=== PATIENT | female | born 1965 | race Caucasian/White ===

== ENCOUNTER → 2016-05-30 | Outpatient (REF) | payer OTHER ==
[2016-05-30 14:15] LABS: BASO % 0.6 % (0.0-1.0); EOS # 0.2 K/mm3 (0.0-0.50); EOS % 6.2 % (0.0-3.0); LARGE UNSTAINED CELL # 0.1 K/mm3 (0.0-0.4); LYMPH # 1.2 K/mm3 (1.5-4.5); LYMPH % 28.9 % (24.0-44.0); MEAN CORPUSCULAR HEMOGLOBIN 32.3 pg (27.0-33.0); MEAN CORPUSCULAR HGB CONC 34.5 g/dl (32.0-36.5); MEAN CORPUSCULAR VOLUME 93.6 fl (80.0-96.0); MONO # 0.4 K/mm3 (0.0-0.8); MONO % 8.8 % (0.0-5.0); NEUTROPHILS # 2.1 K/mm3 (1.8-7.7); NEUTROPHILS % 52.5 % (36.0-66.0); PLATELET COUNT, AUTOMATED 240 k/mm3 (150-450); RED CELL DISTRIBUTION WIDTH 12.3 % (11.5-14.5); WHITE BLOOD COUNT 4.1 K/mm3 (4.0-10.0)
[2016-05-30 14:32] LABS: ALBUMIN 3.5 GM/DL (3.2-5.2); ALBUMIN/GLOBULIN RATIO 1.21 (1.00-1.93); ALKALINE PHOSPHATASE 53 U/L (45-117); ALT/SGPT 18 U/L (12-78); ANION GAP 7 MEQ/L (8-16); AST/SGOT 10 U/L (15-37); BILIRUBIN,TOTAL 0.3 MG/DL (0.2-1.0); BLOOD UREA NITROGEN 11 MG/DL (7-18); CALCIUM LEVEL 8.3 MG/DL (8.5-10.1); CARBON DIOXIDE LEVEL 29 MEQ/L (21-32); CHLORIDE LEVEL 108 MEQ/L (98-107); CREATININE FOR GFR 0.66 MG/DL (0.55-1.02); GLOMERULAR FILTRATION RATE > 60.0 (>58); GLUCOSE, FASTING 89 MG/DL (70-105); POTASSIUM SERUM 3.8 MEQ/L (3.5-5.1); SODIUM LEVEL 144 MEQ/L (136-145); TOTAL PROTEIN 6.4 GM/DL (6.4-8.2)
== END ==
LOC: M LABNEURO 12:08
PROVIDERS: ATTEND Psychiatry & Neurology Neurology
DX: G47.419 Narcolepsy without cataplexy (principal); G44.229 Chronic tension-type headache, not intractable; G43.009 Migraine without aura, not intractable, without status migrainosus

== ENCOUNTER → 2019-01-29 | Outpatient (REF) | LOC: M LAB LCGH 08:34 | PROVIDERS: ATTEND Obstetrics & Gynecology | DX: N92.4 Excessive bleeding in the premenopausal period (principal) ==

== ENCOUNTER 2019-06-07 09:09 | Emergency (ER) | payer OTHER ==
[~2019-06-07] VITALS: Ht 162.6 cm; Wt 72.7 kg
[2019-06-07] MEDS ORDERED: ADACEL/BOOSTRIX VACCINE (DIPHTH/PERTUSS/ACELL/TETANUS)0.5ML SYR (90715) IM ONE (09:30)
[2019-06-07] MEDS ORDERED: ISOVUE-370 76% 100ML VIAL (Q9967) As Ordered ONE (09:50)
[2019-06-07 09:51] LABS: VENOUS HCO3 20.6 MEQ/L (23.0-27.0); VENOUS O2 SATURATION 78.9 % (60.0-80.0); VENOUS PARTIAL PRESSURE CO2 40.1 mmHg (38.0-50.0); VENOUS PARTIAL PRESSURE O2 44.7 mmHg (30.0-50.0); VENOUS PH 7.328 UNITS (7.330-7.430); VENOUS TOTAL CO2 21.8 MEQ/L (24.0-28.0)
[2019-06-07 09:58] LABS: BASO % 0.3 % (0.0-1.0); EOS # 0.1 10^3/uL (0.0-0.5); EOS % 1.3 % (0.0-3.0); HEMATOCRIT 43.3 % (36.0-47.0); HEMOGLOBIN 15.2 g/dl (12.0-15.5); LYMPH # 1.5 10^3/uL (1.5-5.0); MEAN CORPUSCULAR HEMOGLOBIN 32.4 pg (27.0-33.0); MEAN CORPUSCULAR HGB CONC 35.1 g/dl (32.0-36.5); MEAN CORPUSCULAR VOLUME 92.3 fl (80.0-96.0); MONO # 0.7 10^3/uL (0.0-0.8); MONO % 9.2 % (0.0-5.0); NEUTROPHILS # 5.2 10^3/uL (1.5-8.5); NEUTROPHILS % 68.4 % (36.0-66.0); PLATELET COUNT, AUTOMATED 235 10^3/uL (150-450); RED BLOOD COUNT 4.69 10^6/uL (4.00-5.40); WHITE BLOOD COUNT 7.7 10^3/uL (4.0-10.0)
[2019-06-07] MEDS ORDERED: NS 1,000 ML IV SCH (10:00)
[2019-06-07] MEDS ORDERED: ONDANSETRON 4MG/2ML VIAL (J2405) IV ONE (10:00)
[2019-06-07] MEDS ORDERED: MORPHINE 4 MG/ML 1ML VIAL/SYRINGE (J2270) IV PRN (10:00)
[2019-06-07 10:09] LABS: INR 1.14; PROTHROMBIN TIME 14.4 SECONDS (11.8-14.0)
[2019-06-07 10:10] LABS: PARTIAL THROMBOPLASTIN TIME 25.7 SECONDS (25.0-38.4)
--- NOTE | 2019-06-07 10:17 | REP ---
CHEST, PORTABLE: AP portable view of the chest is performed in the supine position. There are no prior studies for comparison. There is no acute infiltrate. Lungs are clear. There is a subcentimeter nodular opacity in the right lung at the level of the hilum, which appears to represent a calcified granuloma, 6 mm in maximum diameter. Heart and mediastinum are unremarkable. Visualized osseous structures are intact. Electronically Signed by Anuj Luther MD 06/07/2019 06:37 P
[2019-06-07 10:28] LABS: ALBUMIN 3.3 GM/DL (3.2-5.2); ALT/SGPT 23 U/L (12-78); AMYLASE 59 U/L (25-115); BILIRUBIN,DIRECT 0.1 MG/DL (0.0-0.2); BILIRUBIN,TOTAL 0.5 MG/DL (0.2-1.0); BLOOD UREA NITROGEN 14 MG/DL (7-18); CALCIUM LEVEL 8.2 MG/DL (8.5-10.1); CARBON DIOXIDE LEVEL 23 MEQ/L (21-32); CHLORIDE LEVEL 113 MEQ/L (98-107); CK-MB VALUE MASS 2.9 NG/ML (<3.6); CPK CREATINE PHOSPHOKINASE 132 U/L (26-192); ETHYL ALCOHOL (ETHANOL) < 0.003 % (0.000-0.010); GLOMERULAR FILTRATION RATE > 60.0 (>51); GLUCOSE, FASTING 111 MG/DL (70-100); LIPASE 153 U/L (73-393); POTASSIUM SERUM 3.7 MEQ/L (3.5-5.1); SODIUM LEVEL 140 MEQ/L (136-145); TOTAL PROTEIN 6.7 GM/DL (6.4-8.2); TROPONIN I < 0.02 NG/ML (< 0.10)
--- NOTE | 2019-06-07 10:40 | REP ---
CT BRAIN WITHOUT CONTRAST: CT brain performed without IV contrast. Coronal reconstruction images are performed. Ventricles are normal in size and position with no midline shift or mass effect. Luther-white differentiation is well maintained. A small amount of hyperdense hemorrhage is seen along the right tentorium, extending into the inferior aspect of the interhemispheric fissure posteriorly. This is likely subarachnoid in location. No other area of hemorrhage is seen. No skull fracture is seen. IMPRESSION: A small amount of hemorrhage along the right tentorium extending into the inferior/posterior interhemispheric fissure. This is likely subarachnoid. There is no evidence of associated edema or mass effect. Dr. Waldron was informed of these findings at approximately 10:20 a.m. 06/07/19. Electronically Signed by Anuj Luther MD 06/07/2019 06:40 P
[2019-06-07] MEDS ORDERED: SYNT25TA PO (10:41)
[2019-06-07] MEDS ORDERED: ZYRTTAB8 PO (10:41)
[2019-06-07] MEDS ORDERED: MELO15TA28 PO (10:41)
[2019-06-07] MEDS ORDERED: METH20TA50 PO (10:41)
[2019-06-07] MEDS ORDERED: SING10TA32 PO (10:41)
[2019-06-07] MEDS ORDERED: MODA200T15 PO (10:41)
[2019-06-07] MEDS ORDERED: TOPI100T9 PO (10:41)
[2019-06-07 11:02] VITALS: BP 116/84
--- NOTE | 2019-06-07 11:03 | REP ---
CT CERVICAL SPINE WITHOUT CONTRAST: CT cervical spine performed without IV contrast. Sagittal and coronal reconstruction images are performed. There is no evidence of fracture or dislocation. There is mild reversal of the normal cervical lordosis. There is no prevertebral soft tissue swelling. There is moderate spurring of C4 through C7 with mild intervening disc space narrowing and subchondral sclerosis at C4-5, C5-6, and C6-7. There is diffuse narrowing, spurring, and subchondral sclerosis at the posterior facet joints. No abnormal density is seen in the spinal canal. IMPRESSION: Degenerative changes without fracture or dislocation. Electronically Signed by Anuj Luther MD 06/07/2019 06:41 P
--- NOTE | 2019-06-07 11:05 | REP ---
CT MAXILLOFACIAL BONES: CT maxillofacial bones performed without IV contrast. Sagittal and coronal reconstruction images are performed. No facial bone fracture is seen. There is periorbital superficial soft tissue hematoma on the right. Globes are intact. Paranasal sinuses demonstrate no air fluid levels. There is mild focal opacification of right ethmoid air cell on the right. Mastoid air cells are well aerated. IMPRESSION: No evidence of maxillofacial bone fracture. Globes are intact. Right periorbital soft tissue hematoma. Electronically Signed by Anuj Luther MD 06/07/2019 06:41 P
--- NOTE | 2019-06-07 11:07 | REP ---
CT CHEST WITH IV CONTRAST. TECHNIQUE: Axial contrast enhanced images from the thoracic inlet to the upper abdomen using 100 mL Isovue 370 intravenous contrast material with multiplanar reformations. The lungs are free of infiltrate or other abnormal opacities. There is no pneumothorax. There is no mediastinal, hilar, or chest wall lymphadenopathy. There is no pleural or pericardial effusion. Heart is normal in size. Thoracic aorta is normal in caliber with no dissection. There are degenerative changes of the spine. No fracture is seen of the visualized osseous structures. IMPRESSION: No acute abnormalities detected. Electronically Signed by Anuj Luther MD 06/07/2019 06:42 P
--- NOTE | 2019-06-07 11:18 | REP ---
CT ABDOMEN/PELVIS WITH IV CONTRAST: TECHNIQUE: Axial contrast enhanced images from the lung bases to the pubic symphysis using 100 mL Isovue 370 intravenous contrast material with multiplanar reformations. In the right lobe of the liver, there is a subcentimeter hypodensity, probably representing a small subcentimeter benign cyst or hemangioma. Otherwise, liver, spleen, adrenals, pancreas, and kidneys are unremarkable with no evidence of traumatic injury. Abdominal aorta is normal in caliber with no aneurysm. There is no adenopathy. There is no free air or free fluid. There is no bowel thickening. Appendix is normal. In the pelvis, the uterus is retroflexed. It contains an IUD. There is a small cyst in each ovary, on the right 2.7 cm maximally, on the left 3.2 cm maximally. Urinary bladder is mildly distended and appears unremarkable. Visualized osseous structures demonstrate no fracture. There are mild degenerative changes of the lumbar spine. Scattered diverticula are seen of the sigmoid colon. IMPRESSION: No acute posttraumatic injury of the organs. No free air or free fluid. No fracture of the visualized osseous structures. Small cyst is seen in each ovary. Subcentimeter cyst or hemangioma right lobe of liver. Electronically Signed by Anuj Luther MD 06/07/2019 06:42 P
--- NOTE | 2019-06-07 11:38 | REP ---
RIGHT KNEE, FIVE VIEWS: There is no evidence of an acute fracture, dislocation or intrinsic bone disease. IMPRESSION: No fracture or dislocation. Electronically Signed by Anuj Luther MD 06/07/2019 06:43 P
--- NOTE | 2019-06-07 11:39 | REP ---
RIGHT ANKLE, FOUR VIEWS: There is no evidence of an acute fracture, dislocation or intrinsic bone disease. IMPRESSION: No fracture or dislocation. Electronically Signed by Anuj Luther MD 06/07/2019 06:43 P
--- NOTE | 2019-06-07 17:51 | ECGEPIP ---
[facility] - ED Test Date: 2019-06-07 Pat Name: ROXIE MCNEIL Department: Room: - Gender: Female Head [employer]: M ED : 1965 Requested By: Terra Crowley Order Number: [id number] Reading MD: Terra Crowley Measurements Intervals [place] Rate: 74 P: 59 NV: 181 QRS: 19 QRSD: 85 T: 44 QT: 384 QTc: 427 Interpretive Statements SINUS RHYTHM No prior Electronically Signed on 06-07-2019 17:51:43 EST by Terra Crowley
== END 2019-06-07 11:04 | disposition short-term general hospital (02) ==
LOC: M ED 09:09 → EDBD 09:09 → EDSEX 09:09 → M ED 11:04
DX: S06.6X0A Traumatic subarachnoid hemorrhage without loss of consciousness, initial encounter (principal); V43.52XA Car driver injured in collision with other type car in traffic accident, initial encounter; Y92.9 Unspecified place or not applicable; Y93.9 Activity, unspecified; Y99.9 Unspecified external cause status; S05.10XA Contusion of eyeball and orbital tissues, unspecified eye, initial encounter; N83.202 Unspecified ovarian cyst, left side; N83.201 Unspecified ovarian cyst, right side; R93.2 Abnormal findings on diagnostic imaging of liver and biliary tract; R91.8 Other nonspecific abnormal finding of lung field; M25.78 Osteophyte, vertebrae; M50.30 Other cervical disc degeneration, unspecified cervical region; Z79.899 Other long term (current) drug therapy
CPT/HCPCS: 36415; 70450; 70486; 71045; 71260; 72125; 73564; 73610; 74177; 80047; 80048; 80076; 82150; 82550; 82553; 82803; 83605; 83690; 84484; 85025; 85610; 85730; 86850; 86900; 86901; 90471; 90715; 93005; 93041; 96361; 96374; 96375; 99285; G0480; J2270; J2405; Q9967

== ENCOUNTER 2019-06-17 23:26 | Emergency (ER) | payer OTHER ==
[~2019-06-17] VITALS: Ht 162.6 cm; Wt 72.7 kg
[~2019-06-17 23:26] MED LIST: MELO15TA28 PO; METH20TA50 PO; MODA200T15 PO; SING10TA32 PO; SYNT25TA PO; TOPI100T9 PO; ZYRTTAB8 PO
[2019-06-18] MEDS ORDERED: NS 1,000 ML IV ONE (00:15)
[2019-06-18] MEDS ORDERED: MORPHINE 4 MG/ML 1ML VIAL/SYRINGE (J2270) IV ONE (00:15)
[2019-06-18] MEDS ORDERED: METOCLOPRAMIDE INJ 10MG/2ML VIAL (J2765) IV ONE (00:15)
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
[2019-06-18 02:00] VITALS: BP 122/75
[2019-06-18] MEDS ORDERED: NORCO 5/325MG TABLET (BULK FOR ED) PO ONE (02:15)
--- NOTE | 2019-06-18 03:03 | REP ---
Clinical: Costochondral chest pain . Comparison: 06/07/2019 . Findings: The mediastinum and cardiac silhouette are stable and within normal limits for portable technique. The lung baldwin are clear without acute consolidation, effusion, or pneumothorax. Skeletal structures are intact. Impression: No acute cardiopulmonary process appreciated. Electronically Signed by Brian Laird MD 06/18/2019 02:54 A
--- NOTE | 2019-06-18 11:41 | ED PDOC ---
Post-Departure Follow-Up dr latisha cordova faxed formal report of ct head for fu Ira Casas MD Jun 18, 2019 11:41
== END 2019-06-18 02:18 | disposition home or self-care (01) ==
LOC: M ED 23:26
DX: S06.6X0D Traumatic subarachnoid hemorrhage without loss of consciousness, subsequent encounter (principal); V49.9XXD Car occupant (driver) (passenger) injured in unspecified traffic accident, subsequent encounter; Y92.9 Unspecified place or not applicable; Y93.9 Activity, unspecified; Y99.9 Unspecified external cause status; H53.149 Visual discomfort, unspecified; F90.9 Attention-deficit hyperactivity disorder, unspecified type; Z79.899 Other long term (current) drug therapy
CPT/HCPCS: 70450; 71045; 96361; 96374; 96375; 99284; J2270; J2765

== ENCOUNTER → 2019-07-02 | Outpatient (CLI) | payer OTHER ==
--- NOTE | 2019-07-02 10:17 | REP ---
Clinical: Follow up subdural hematoma. Comparison: 06/17/2019. Technique: Axial noncontrast images from the skull base to the vertex with coronal re-formations. Comparison: 06/17/1927, 06/07/2019 Findings: The ventricles, sulci, and cisterns are symmetric and normal. Luther-white differentiation is maintained. No acute intracranial hemorrhage, mass or mass effect is appreciated. No extra-axial fluid collection is identified. The previously suggested hemorrhage along the right tentorium is not identified on current examination. Calvarium is intact. Paranasal sinuses and mastoid air cells are clear. Impression: Negative noncontrast head CT. Previously suggested hemorrhage appears to have resolved. Electronically Signed by Brian Laird MD 07/02/2019 10:09 A
== END ==
LOC: M RAD 09:52
PROVIDERS: ATTEND Physician Assistant Medical
DX: S06.5X9D Traumatic subdural hemorrhage with loss of consciousness of unspecified duration, subsequent encounter (principal); X58.XXXD Exposure to other specified factors, subsequent encounter; Y92.9 Unspecified place or not applicable

== ENCOUNTER → 2019-10-27 | Outpatient (CLI) | payer OTHER ==
--- NOTE | 2019-10-28 10:02 | REPVR ---
PROCEDURE INFORMATION: Exam: MR Cervical Spine Without Contrast Exam date and time: 10/27/2019 5:37 PM Age: 53 years old Clinical indication: Neck pain; Additional info: Cervical radiculopathy TECHNIQUE: Imaging protocol: Multiplanar magnetic resonance images of the cervical spine without contrast. COMPARISON: CT Spine,cervical w/o contrast 06/07/2019 9:57 AM FINDINGS: Vertebrae: There is mild reversal the normal cervical lordosis. There is no fracture or listhesis. There is moderate intervertebral disc space loss at C4/5 and C5/6. Spinal cord: The cervicomedullary junction and cervical cord appear normal. C2-C3: There is a shallow disc osteophyte complex. There is mild facet hypertrophy. There is mild right and moderate left neural foraminal narrowing. C3-C4: There is a diffuse disc osteophyte complex. There is mild right and moderate to severe left neural foraminal narrowing. C4-C5: There is a diffuse disc osteophyte complex. There is mild facet hypertrophy. There is moderate right and severe left neural foraminal narrowing. C5-C6: There is a diffuse disc osteophyte complex. There is mild facet hypertrophy. There is moderate to severe left neural foraminal narrowing. C6-C7: There is a diffuse disc osteophyte complex. There is in a mild facet hypertrophy. There severe left neural foraminal narrowing. C7-T1: No significant disc disease. No significant spinal stenosis. Vertebral arteries: Expected flow voids in the vertebral arteries. Soft tissues: There is a focal cystic structure within the tongue base measuring up to 7 mm in diameter. ENT evaluation may be of benefit. IMPRESSION: Degenerative disc disease and spondylosis, with multilevel moderate to severe neural foraminal narrowing. Electronically signed by: Alana Esparza On 10/28/2019 10:02:18 AM
== END ==
LOC: M RAD 16:32
PROVIDERS: ATTEND Pain Medicine Pain Medicine
DX: M54.12 Radiculopathy, cervical region (principal); M25.78 Osteophyte, vertebrae; M50.321 Other cervical disc degeneration at C4-C5 level; M50.322 Other cervical disc degeneration at C5-C6 level

== ENCOUNTER → 2019-12-18 | Outpatient (CLI) | payer OTHER ==
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
== END ==
LOC: M RAD 10:31
PROVIDERS: ATTEND Physician Assistant Medical
DX: M47.892 Other spondylosis, cervical region (principal); M43.6 Torticollis; R20.0 Anesthesia of skin; R20.2 Paresthesia of skin

== ENCOUNTER → 2019-12-22 | Outpatient (CLI) | payer MEDICARE, MEDICAID ==
[2019-12-22 16:25] LABS: BASO % 0.4 % (0.0-1.0); EOS # 0.1 10^3/uL (0.0-0.5); EOS % 1.6 % (0.0-3.0); HEMATOCRIT 44.9 % (36.0-47.0); HEMOGLOBIN 15.6 g/dl (12.0-15.5); LYMPH % 20.3 % (24.0-44.0); MEAN CORPUSCULAR HEMOGLOBIN 32.5 pg (27.0-33.0); MEAN CORPUSCULAR HGB CONC 34.7 g/dl (32.0-36.5); MEAN CORPUSCULAR VOLUME 93.5 fl (80.0-96.0); MONO # 0.6 10^3/uL (0.0-0.8); MONO % 11.8 % (0.0-5.0); NEUTROPHILS # 3.3 10^3/uL (1.5-8.5); NEUTROPHILS % 65.5 % (36.0-66.0); PLATELET COUNT, AUTOMATED 222 10^3/uL (150-450); WHITE BLOOD COUNT 5.1 10^3/uL (4.0-10.0)
[2019-12-22 17:05] LABS: ALBUMIN 3.5 GM/DL (3.2-5.2); ALT/SGPT 27 U/L (12-78); BILIRUBIN,TOTAL 0.4 MG/DL (0.2-1.0); BLOOD UREA NITROGEN 11 MG/DL (7-18); CALCIUM LEVEL 8.9 MG/DL (8.5-10.1); CARBON DIOXIDE LEVEL 27 MEQ/L (21-32); CHLORIDE LEVEL 106 MEQ/L (98-107); CREATININE FOR GFR 0.78 MG/DL (0.55-1.30); GLOMERULAR FILTRATION RATE > 60.0 (>51); GLUCOSE, FASTING 98 MG/DL (70-100); LIPASE 143 U/L (73-393); POTASSIUM SERUM 4.2 MEQ/L (3.5-5.1); SODIUM LEVEL 136 MEQ/L (136-145); TOTAL PROTEIN 7.2 GM/DL (6.4-8.2)
--- NOTE | 2020-01-08 10:43 | REP ---
CHEST X-RAY: CLINICAL: Chest pain, dyspnea. TECHNIQUE: PA and lateral FINDINGS: Mediastinum and cardiac silhouette are normal. Lung baldwin are clear. No consolidation, effusion or pneumothorax. Skeletal structures are intact. IMPRESSION: No acute cardiopulmonary process or focal consolidation. MTDD
== END ==
LOC: M WUC 12:51
PROVIDERS: ATTEND Physician Assistant
DX: R10.10 Upper abdominal pain, unspecified (principal); R07.1 Chest pain on breathing; R31.9 Hematuria, unspecified

== ENCOUNTER → 2020-01-20 | Outpatient (CLI) | payer OTHER, MEDICARE, MEDICAID ==
--- NOTE | 2020-01-23 14:15 | REP ---
RIGHT ANKLE SERIES: 01/20/20 CLINICAL: Pain. TECHNIQUE: AP, lateral, bilateral oblique views of the right ankle. FINDINGS: Anterolateral swelling is appreciated. No acute fracture or dislocation. Ankle mortise and joint spaces are within normal limits. IMPRESSION: Swelling. No acute fracture or dislocation. MTDD
== END ==
LOC: M WUC 18:08
PROVIDERS: ATTEND Nurse Practitioner Family
DX: M25.571 Pain in right ankle and joints of right foot (principal)

== ENCOUNTER → 2020-03-12 | Outpatient (CLI) | payer MEDICARE, MEDICAID ==
--- NOTE | 2020-03-12 13:46 | REP ---
INDICATION: M79.671 PAIN R FOOT - STAT - CALL [phone]. Evaluate mass on the bottom of the right foot. Pain. COMPARISON: Comparison radiographs of the right foot are from January 20, 2020.. TECHNIQUE: Soft tissue scanning in the volar soft tissues of the right foot. FINDINGS: Scanning through the area in question in the right foot demonstrates an irregularly shaped fluid collection along the distribution of the plantar fascia at midfoot level. This fluid collection measures 1.7 cm in greatest dimension by 0.7 x 0.6 cm. No other abnormality. IMPRESSION: Small soft tissue fluid collection in the plantar soft tissues of the right foot 1.7 x 0.7 x 0.6 cm in diameter. Ganglion cyst versus cystic changes associated with chronic inflammation, perhaps related to plantar fasciitis. <Electronically signed by Ernesto Miller > 03/12/20 [id number]
== END ==
LOC: M WHC 12:40
PROVIDERS: ATTEND Orthopaedic Surgery Sports Medicine
DX: M79.671 Pain in right foot (principal)

== ENCOUNTER → 2020-05-27 | Outpatient (REF) | payer MEDICARE, MEDICAID ==
[2020-05-27 13:01] LABS: ALBUMIN 3.6 GM/DL (3.2-5.2); ALT/SGPT 22 U/L (12-78); BILIRUBIN,TOTAL 0.4 MG/DL (0.2-1.0); BLOOD UREA NITROGEN 14 MG/DL (7-18); CALCIUM LEVEL 9.1 MG/DL (8.5-10.1); CARBON DIOXIDE LEVEL 28 MEQ/L (21-32); CHLORIDE LEVEL 109 MEQ/L (98-107); CHOLESTEROL LEVEL 199 MG/DL (<200); CHOLESTEROL RISK RATIO 4.522 (<5); CREATININE FOR GFR 0.87 MG/DL (0.55-1.30); GLOMERULAR FILTRATION RATE > 60.0 (>51); GLUCOSE, FASTING 115 MG/DL (70-100); HDL CHOLESTEROL 44 MG/DL (>40); LDL CHOLESTEROL 132 MG/DL (<100); NON-HDL-C 155 MG/DL; POTASSIUM SERUM 4.5 MEQ/L (3.5-5.1); SODIUM LEVEL 143 MEQ/L (136-145); TOTAL PROTEIN 6.8 GM/DL (6.4-8.2); TRIGLYCERIDES LEVEL 116 MG/DL (<150)
== END ==
LOC: M LAB REF 11:41
PROVIDERS: ATTEND Family Medicine Addiction Medicine
DX: E03.9 Hypothyroidism, unspecified (principal)

== ENCOUNTER → 2020-06-21 | Outpatient (CLI) | payer MEDICARE, MEDICAID ==
--- NOTE | 2020-06-21 10:44 | REP ---
INDICATION: CHEST PAIN, UNSPECIFIED COMPARISON: 12/22/2019 TECHNIQUE: PA and lateral. FINDINGS: The mediastinum and cardiac silhouette are normal. The lung baldwin are clear and without acute consolidation, effusion, or pneumothorax. The skeletal structures are intact and normal. IMPRESSION: No acute cardiopulmonary process. <Electronically signed by Brian Laird > 06/21/20 [id number]
== END ==
LOC: M RAD 10:16
PROVIDERS: ATTEND Family Medicine Addiction Medicine
DX: R07.9 Chest pain, unspecified (principal)

== ENCOUNTER → 2021-05-25 | Outpatient (CLI) | payer MEDICARE, MEDICAID | LOC: M RAD 07:43 | PROVIDERS: ATTEND Family Medicine Addiction Medicine | DX: M79.672 Pain in left foot (principal); M77.32 Calcaneal spur, left foot ==

== ENCOUNTER → 2022-02-28 | Outpatient (REF) | payer MEDICARE, MEDICAID ==
[2022-02-28 13:41] LABS: ALBUMIN 3.8 G/DL (3.2-5.2); ALT/SGPT 21 U/L (7.0-40); BILIRUBIN,TOTAL 0.5 MG/DL (0.3-1.2); BLOOD UREA NITROGEN 15 MG/DL (9-23); CALCIUM LEVEL 9.3 MG/DL (8.5-10.1); CARBON DIOXIDE LEVEL 27 MMOL/L (20-31); CHLORIDE LEVEL 107 MMOL/L (98-107); CHOLESTEROL LEVEL 174 MG/DL (<200); CHOLESTEROL RISK RATIO 3.98 (<5); CREATININE FOR GFR 0.76 MG/DL (0.55-1.30); GLOMERULAR FILTRATION RATE > 60.0 (>51); GLUCOSE, FASTING 106 MG/DL (60-100); HDL CHOLESTEROL 43.7 MG/DL (>40); LDL CHOLESTEROL 104.3 MG/DL (<100); NON-HDL-C 130 MG/DL; POTASSIUM SERUM 4.6 MMOL/L (3.5-5.1); SODIUM LEVEL 140 MMOL/L (136-145); THYROID STIMULATING HORMONE 1.522 uIU/ML (0.55-4.78); TRIGLYCERIDES LEVEL 130 MG/DL (<150)
[2022-02-28 14:01] LABS: HEMOGLOBIN A1c 5.1 % (4.0-6.0)
== END ==
LOC: M LAB REF 12:27
PROVIDERS: ATTEND Family Medicine Addiction Medicine
DX: R73.03 Prediabetes (principal); E03.9 Hypothyroidism, unspecified

== ENCOUNTER → 2023-10-31 | Outpatient (REF) | payer MEDICARE, MEDICAID ==
[~2023-10-31] MED LIST changes: +MONT-5 PO; -SING10TA32 PO
[2023-10-31 18:14] LABS: ALBUMIN 3.8 G/DL (3.2-5.2); ALKALINE PHOSPHATASE 69 U/L (46-116); ALT/SGPT 27 U/L (7.0-40); AST/SGOT 16 U/L (<34); BILIRUBIN,TOTAL 0.6 MG/DL (0.3-1.2); BLOOD UREA NITROGEN 13 MG/DL (9-23); CALCIUM LEVEL 9.6 MG/DL (8.5-10.1); CARBON DIOXIDE LEVEL 28 MMOL/L (20-31); CHLORIDE LEVEL 106 MMOL/L (98-107); CHOLESTEROL LEVEL 223 MG/DL (<200); CHOLESTEROL RISK RATIO 4.66 (<5); CREATININE FOR GFR 0.77 MG/DL (0.55-1.30); GLOMERULAR FILTRATION RATE > 60.0 (>51); GLUCOSE, FASTING 98 MG/DL (60-100); HDL CHOLESTEROL 47.8 MG/DL (>40); LDL CHOLESTEROL 142.4 MG/DL (<100); NON-HDL-C 175.2 MG/DL; POTASSIUM SERUM 4.2 MMOL/L (3.5-5.1); SODIUM LEVEL 140 MMOL/L (136-145); TRIGLYCERIDES LEVEL 164 MG/DL (<150)
[2023-10-31 18:16] LABS: THYROID STIMULATING HORMONE 2.082 uIU/ML (0.55-4.78)
[2023-10-31 18:37] LABS: HEMOGLOBIN A1c 5.2 % (4.0-6.0)
== END ==
LOC: M LAB REF 17:03
PROVIDERS: ATTEND Family Medicine Addiction Medicine
DX: R73.03 Prediabetes (principal); E78.00 Pure hypercholesterolemia, unspecified

== ENCOUNTER → 2024-01-31 | Outpatient (CLI) | payer MEDICARE, MEDICAID | LOC: M WHC 08:30 | PROVIDERS: ATTEND Family Medicine Addiction Medicine | DX: R92.2 Inconclusive mammogram (principal) | CPT/HCPCS: 76642; 77065; G0279 ==